=== PATIENT | female | born 1980 | race Two or more races ===

== ENCOUNTER 2020-07-12 10:23 | Outpatient (CLI) | payer OTHER ==
[2020-07-12] MEDS ORDERED: GADOTERATE 10 MMOL/20 ML VIAL ONE (10:45)
== END 2020-07-12 23:59 | disposition home or self-care (01) ==
LOC: CFH 10:23
PROVIDERS: ATTEND Obstetrics & Gynecology
DX: N61.1 Abscess of the breast and nipple (principal); N63.0 Unspecified lump in unspecified breast; N64.4 Mastodynia; N63.11 Unspecified lump in the right breast, upper outer quadrant; N63.41 Unspecified lump in right breast, subareolar; Z80.3 Family history of malignant neoplasm of breast
CPT/HCPCS: 77049; A9575; C8908